=== PATIENT | male | born 1955 | race Two or more races ===

== ENCOUNTER 2022-12-15 07:25 | Day surgery (SDC) | payer MEDICARE, OTHER ==
[2022-12-15] VITALS (9 sets, daily range): BP systolic 118–138; BP diastolic 52–77
[~2022-12-15] VITALS: Ht 175.3 cm; Wt 108.0 kg
[~2022-12-15 07:25] MED LIST: APIX5TAB PO; APPLTAB2 PO; ASPI1TAB19 PO; B-COCAP36 PO; CHOL20007 PO; MAGN400T40 PO; METO25TA5 PO; MISC450C PO; SIMV20TA20 PO
[2022-12-15] MEDS ORDERED: LIDOCAINE 2%HCL (LOCAL ANESTH.) INJ 20ML MDV ONE (07:44)
[2022-12-15] MEDS ORDERED: IODIXANOL 320MG/ML 100ML BTL IV ONE ×2 (07:44→08:36)
[2022-12-15] MEDS ORDERED: ANGIOMAX 250 MG VIAL IV ONE (07:57)
[2022-12-15] MEDS ORDERED: HEPARIN SODIUM (PORCINE) 5000 UNITS/ML 1ML VIAL ONE (07:57)
[2022-12-15] MEDS ORDERED: MIDAZOLAM HCL 2MG/2ML 2ml VIAL (1mg/ml) ONE (07:58)
[2022-12-15] MEDS ORDERED: VERAPAMIL 2.5MG/ML INJ 2ML VIAL IV ONE (07:58)
[2022-12-15] MEDS ORDERED: fentaNYL CITRATE 100 MCG/2 ML VL ONE (07:58)
[2022-12-15] MEDS ORDERED: SODIUM CHL 0.9% 0 ML ONE (07:58)
== END 2022-12-15 10:57 | disposition home or self-care (01) ==
LOC: CATH 07:25
PROVIDERS: ATTEND Internal Medicine Cardiovascular Disease
DX: R94.39 Abnormal result of other cardiovascular function study (principal); I25.10 Atherosclerotic heart disease of native coronary artery without angina pectoris; I48.0 Paroxysmal atrial fibrillation; E11.9 Type 2 diabetes mellitus without complications; E78.5 Hyperlipidemia, unspecified; E66.9 Obesity, unspecified; Z68.35 Body mass index [BMI] 35.0-35.9, adult; Z79.82 Long term (current) use of aspirin; Z79.899 Other long term (current) drug therapy
CPT/HCPCS: 93458; C1769; C1887; C1894; J1644; J2250; J3010; Q9967; 99152